=== PATIENT | female | born 1945 | race Caucasian/White ===

== ENCOUNTER 2019-03-11 09:55 | Day surgery (SDC) | payer MEDICARE, OTHER ==
[~2019-03-11 09:55] MED LIST: Buffered Lidocaine 1% SYRIN* 1 ML/SYRINGE INTRADERM ONE; Lactated Ringers 1000 ML Bag* 1,000 ML IV SCH; Sodium Citrate/Citric Acid* 15 ML UDC PO ONE
[2019-03-11] MEDS ORDERED: Sodium Citrate/Citric Acid* 15 ML UDC ONE (10:58)
[2019-03-11] MEDS ORDERED: Clindamycin 900 MG IVPREMIX(* 900 MG/50 ML SDV IV ONE (10:59)
[2019-03-11] MEDS ORDERED: Bupivacaine 0.25% SDV PF* 10 ML VIAL INJ ONE (13:48)
[2019-03-11] MEDS ORDERED: Propofol* 10 MG/ML 20 ML BTL ONE (14:19)
[2019-03-11] MEDS ORDERED: fentaNYL* 50 MCG/ML 2 ML VIAL (100 MCG VIAL) ONE ×2 (14:25→16:52)
[2019-03-11] MEDS ORDERED: Lidocaine 1% INJ* 10 MG/ML 30 ML SDV ONE (14:43)
[2019-03-11] MEDS ORDERED: Betamethasone INJ* 6 MG/ML 5 ML VIAL (30 MG) ONE (14:43)
[2019-03-11] MEDS ORDERED: Lidocaine 2% PF * 5 ML VIAL ONE (14:45)
[2019-03-11] MEDS ORDERED: fentaNYL* 50 MCG/ML 2 ML VIAL (100 MCG VIAL) IV PRN (17:02)
[2019-03-11] MEDS ORDERED: Ondansetron INJ* 2 MG/ML VIAL IV PRN (17:02)
[2019-03-11] MEDS ORDERED: Naloxone* 0.4 MG/ML 1 ML VIAL IV PRN (17:02)
[2019-03-11] MEDS ORDERED: HYDROcodone/ACETAMIN 5-325 MG* 1 TAB ONE (17:25)
[2019-03-11] MEDS ORDERED: Ibuprofen TAB* 600 MG ONE (17:57)
[2019-03-11 20:30] VITALS: BP 138/76
--- NOTE | 2019-03-11 21:54 | OP ---
DATE OF OPERATION: 03/11/19 - [facility] DATE OF : 41 SURGEON: Gustabo Rivear MD TYPING BOOKKEEPER: RAZ Thacker. An delinquent tax collection assistant was needed for the entirety of the procedure to aid in positioning of the arm and retraction. ANESTHESIOLOGIST: Dr. Bangura. ANESTHESIA: General. PRE-OP DIAGNOSES: 1. 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 2. Severe right scaphotrapeziotrapezoid joint arthritis. 3. 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 4. 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 POST-OP DIAGNOSES: 1. 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 2. Severe right scaphotrapeziotrapezoid joint arthritis. 3. 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 4. 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 OPERATIVE PROCEDURE: 1. Right thumb carpometacarpal arthroplasty with trapeziectomy. 2. Distally based split flexor carpi radialis tendon transfer for thumb suspension. 3. Right partial trapeziectomy with AlloDerm allograft interposition between the proximal trapezoid and the distal pole of the scaphoid as well as between the base of the thumb metacarpal and the distal pole of the scaphoid. 4. Right thumb metacarpophalangeal joint volar capsulodesis. 5. Right small finger proximal interphalangeal joint steroid injection with 1 mL of 1% lidocaine and 6 mg of betamethasone. INDICATIONS: Raine has severe stage 4 basal joint arthritis with severe STT joint arthritis. She has compensatory MCP joint hyperextension laxity. She also has a small finger PIP joint that is painful. I talked about her treatment options. She understands the risks of infection and other potential complications and she wished to proceed. ESTIMATED BLOOD LOSS: 2 mL. COMPLICATIONS: None. FINDINGS: See above and below. DESCRIPTION OF PROCEDURE: Raine was seen in the preoperative holding area. The correct site, side, and procedure were identified. We came back to the operating room where the arm was prepped and draped in the usual fashion. A time-out was performed. The arm was exsanguinated with the Esmarch and the tourniquet was inflated to 225 mmHg. I first made a 2 to 3 cm incision over the dorsoradial thumb base and over the trapezium. Dissection was carried down. Full-thickness flaps were raised off the capsule. The radial artery was dissected free and mobilized out of the way with some Ragnell retractors. I went ahead and opened the capsule and subperiosteally dissected off the trapezium to mobilize the trapezium. The trapezium was removed in piecemeal fashion with the rongeur. The scaphotrapezial joint was examined. There was full thickness cartilage loss. At this point, I decided to go ahead and excise the proximal 3 mm of trapezoid. This was done with a small osteotome; it came out in 1 nice big piece. It was a very clean osteotomy and excision of the portion of the trapezoid bone. I then went ahead and used sequentially large drill bits to make a bone tunnel from the dorsoradial thumb metacarpal base exiting out the volar ulnar articular surface near the base of the second metacarpal. We turned our attention to harvesting the tendon. I made a 1 cm transverse incision just proximal to the wrist flexion crease. The FCR tendon sheath was opened. The FCR tendon was delivered up into the wound and split longitudinally with a 15 blade. A 26-gauge wire was passed into the tendon split. I made a second 1.5 cm incision over the proximal aspect of the tendon near the musculotendinous junction. The sheath was released along the entirety of the FCR tendon. A Misty clamp was passed along the tendon and I used this to pull the 26- gauge wire from the distal wound into the proximal wound, releasing the half the tendon in the musculotendinous junction. I secured the end of the tendon tail with a 3-0 Ethibond suture and debrided the muscular remnants. Two 26-gauge wires were used to shuttle the FCR tendon tail down into the thumb base wound and then through the bone tunnel back around the intact limb of the FCR tendon and finally, maximum tension was set as I secured the tendon transfer with multiple 3-0 Ethibond figure- of-eight sutures, sewing all 3 limbs of the tendon transfer together and the last suture sewing intact limb to intact limb. I went ahead and took my AlloDerm tissue and cut a piece to size and folded over itself and secured it around the periphery with multiple 4-0 Ethibond sutures. I pulled some traction on the second finger and placed my AlloDerm tissue between the proximal trapezoid and the distal pole of the scaphoid. I also filled up the space between the distal pole of the scaphoid and the thumb base. This provided excellent soft tissue interposition in the areas. I had also placed some bone wax on the proximal trapezoid. I irrigated out the wound copiously. The trapeziectomy was closed with 4-0 Vicryl suture. The skin was closed with 4-0 nylon suture at all the incisions. Lastly, I made a V-shaped incision ulnarly based over the volar aspect of the MCP joint. Dissection was carried down. The digital nerves were preserved. The A1 carmenza was released. The tendon was retracted out of the way. The [place] blade was used to create a distally based U-flap of the volar plate. The volar plate was mobilized in its entirety. I then released the soft tissue off of the metacarpal neck and placed 2 DePuy Mini Mitek suture anchors in the metacarpal neck. I went ahead and then performed my capsulodesis by advancing the volar plate and then sewing it down using the sutures off of the Mini Mitek suture anchors. I set it such that I had a block at 30 degrees of flexion at the MCP joint. I was very pleased with the tension. We went ahead and irrigated out the wound. The skin was closed with 4-0 nylon suture. A 0.25% plain Marcaine was infiltrated all around the operative area. A well padded thumb spica splint was applied, keeping the MCP joint in about 30 degrees of flexion, but allowing for a little bit of IP joint motion. Tourniquet was deflated. The hand pinked up immediately. She was taken to the recovery room in stable condition. [id number]/[facility] #: [id number] MAY
== END 2019-03-11 18:30 | disposition home or self-care (01) ==
LOC: OR 09:55
PROVIDERS: ATTEND Orthopaedic Surgery Hand Surgery
DX: M18.11 Unilateral primary osteoarthritis of first carpometacarpal joint, right hand (principal); M19.041 Primary osteoarthritis, right hand; M19.031 Primary osteoarthritis, right wrist; E78.5 Hyperlipidemia, unspecified; M19.90 Unspecified osteoarthritis, unspecified site; Z88.0 Allergy status to penicillin
CPT/HCPCS: 88304; 88311; A9270-GY; C1713; J0702; J2704; J3010; J3490; Q4116